=== PATIENT | female | born 1990 | race Native Hawaiian/Other Pacific Islander ===

== ENCOUNTER → 2017-01-24 | Outpatient (CLI) | payer OTHER ==
[~2017-01-24] MED LIST: OMEP20CA5 PO
== END ==
LOC: HPND 07:49
PROVIDERS: ATTEND Obstetrics & Gynecology
DX: O28.1 Abnormal biochemical finding on antenatal screening of mother (principal); Z3A.22 22 weeks gestation of pregnancy
CPT/HCPCS: 59000; 76811; 76817; 76825; 76827; 76946; 93325

== ENCOUNTER 2017-02-07 09:04 | Inpatient (IN) | payer OTHER ==
[2017-02-07] MEDS ORDERED: LACTATED RINGER'S 1000 ML INJ 1,000 ML IV SCH (12:09)
[2017-02-07 12:11] VITALS: BP 102/68; PULSE 58
[2017-02-07] MEDS ORDERED: BETAMETHASONE SOD PHOS/ACETATE SUSP 30 MG/5 ML VIAL IM SCH (12:15)
[2017-02-07] MEDS ORDERED: SODIUM CHLORIDE 0.9% FLUSH 10 ML FLUSH IV FLUSH SCH (12:15)
[2017-02-07] MEDS ORDERED: SODIUM CHLORIDE 0.9% FLUSH 10 ML FLUSH IV FLUSH PRN (12:15)
--- NOTE | 2017-02-07 12:32 | HHI.HP ---
HPI Chief Complaint abnormal testing with [facility] today 02/07/17; severe IUGR, intermittent reversed EDF, brain sparing, oligohydramnios DVP 2.75cm Date Seen: February 07, 2017 Time Seen: 12:15 Travel History International Travel<30 Days: No Contact w/Intl Traveler<30Days: No Known Affected Area: No History of Present Illness HPI 26 yo with EDC 05/30/17 by LMP c/w 13 wk sonogram, admitted today on recommendation from [facility] Dr. Aaron due to abnormal testing, severe IUGR, in male fetus with known history of abnormal lab & ultrasound findings; elevation in AFP on testing, increased risk open spina bifida 1:10. Amniocentesis performed by [facility] in January 2017 with FISH results normal karyotype 46 XY. Pt was scheduled for growth scan today due to h/o abnormal labs as well as h/o abnormal sonogram findings 01/24/17: AEDV, echogenic bowel, suspected VSD. Today EFW is 372g, which is <10%tile and shows no growth compared to scan from 1 month ago, at which time EFW was around 411g. Dopplers today are abnormal with brain sparing and intermittent reversed EDF as well as oligohydramnios with DVP 2.75cm. Pt denies any h/o PPROM. Pt and are of [place] origin, do not speak [place], lang interpreter was present during [facility] eval today. On further history of first with lang interpreter today, it sounds as if that may have been a "8 month" . possibly 32-34 wks , delivered by , 5#8oz, female. Pt and report no family history of genetic abnormalities. Deny exposures. Previous TORCH testing was negative last month for toxo/CMV/Parvo. Per [facility] recommendation today for admission to Antepartum, IV fluid hydration, continuous monitoring, betamethasone administration. If tracing reassuring would recommend transfer to Level 3 NICU due to severely abnormal testing and concern for need for delivery within next 48-72h if testing devolves. Repeat testing to be performed in 48 hours. Para: 1 : 2 Last Menstrual Period: Aug 23, 2016 Miscarriage: 0 : 0 History Past Medical History Narrative Medical denies Obstetric History Obstetric History no records available language barrier possible 8 month delivery via 10/18/12 female 5#8oz in [place] Past Surgical History Narrative Surgical 10/18/12 Family History Family History: Negative Social History Alcohol Use: No Tobacco Use: No Substance Abuse: No Allergies-Medications (Allergen,Severity, Reaction): Coded Allergies: No Known Allergies (Unverified , 02/07/17) Home Meds Active Scripts Omeprazole 20 mg (Prilosec 20 mg)20 Mg Capcr20 Mg PO DAILY #30 CAP Prov:Dru Sanchez MD 02/03/15 Review of Systems General / Constitutional: Weight Gain (10# from first visit), No: Fever, Chills, Other Eyes: No: Diploplia, Blurred Vision, Visual changes, Pain, Photophobia HENT: No: Headaches, Vertigo, Lightheadedness Cardiovascular: No: Irregular Rhythm, Chest Pain or Discomfort, Palpitations, Tachycardia, Syncope, Varicosities, Edema, Cyanosis Respiratory: No: Cough, Short of Breath, Other Gastrointestinal: No: Nausea, Vomiting, Diarrhea Genitourinary: No: Decreased Urinary Output, Oliguria Musculoskeletal: No: Limited ROM, Weakness, Cramping, Edema, Pain Skin: No Rash, No Itching, No Dryness, No Lumps, No Change in Pigmentation, No Change in Nails, No Alopecia, No Lesions Neurologic: No: Weakness, Dizziness, Syncope, Focal Abnormalities, Coordination Problem, Headache, Slurred Speech, Seizures Psychiatric: No: Depression, Suicidal Ideations, Homicidal Ideation Endocrine: No: Heat Intolerance, Cold Intolerance, Polydipsia, Polyuria, Other Physical Exam Narrative GENERAL: Well-nourished, well-developed patient. SKIN: Warm and dry. HEAD: Normocephalic and atraumatic. EYES: No scleral icterus. No injection or drainage. ENT: No nasal drainage noted. Mucous membranes pink. Airway patent. NECK: Supple, trachea midline. No JVD. CARDIOVASCULAR: Regular rate and rhythm without murmurs, gallops, or rubs. RESPIRATORY: Breath sounds equal bilaterally. No accessory muscle use. BREASTS: deferred. ABDOMEN/GI: Abdomen soft, non-tender, bowel sounds present, no rebound, no guarding Gravid to [24] weeks size Fundal Height: [21] GENITOURINARY: External Genitalia: deferred Presentation: [cephalic on sono today] Membranes: [intact] Uterine Contractions: [none] FHT's: 140s with no decels EXTREMITIES: No cyanosis or edema. BACK: Nontender without obvious deformity. No CVA tenderness. NEUROLOGICAL: Awake and alert. Motor and sensory grossly within normal limits. Five out of 5 muscle strength in all muscle groups. Normal speech. Data Data Vital Signs Reviewed: Yes Orders Us Ob Repeat/Fu(Growth) (02/07/17 ) Us Ob Umbilical Art Dopp (02/07/17 ) Admit To Inpatient (02/07/17 ) Diet Npo (02/07/17 Lunch) Vital Signs (Adult) [id number] AWAKE (02/07/17 12:09) Heart (02/07/17 12:09) Activity Oob Ad Lalitha (02/07/17 12:09) Complete Blood Count With Diff (02/07/17 12:09) Basic Metabolic Panel (Bmp) (02/07/17 12:09) Uric Acid (02/07/17 12:09) Urinalysis - C+S If Indicated (02/07/17 12:09) Lactated Ringer's 1000 Ml Inj (Lr 1000 M (02/07/17 12:09) Sodium Chloride 0.9% Flush (Ns Flush) (02/07/17 12:15) Sodium Chloride 0.9% Flush (Ns Flush) (02/07/17 12:15) Ob/Psych Drug Screen, Urine (02/07/17 12:09) Hold Clot (02/07/17 12:09) Betamethasone Inj (Celestone Soluspan In (02/07/17 12:15) Inpatient Certification (02/07/17 ) Specimen To Be Collected PRN (02/07/17 12:09) Assessment/Plan Problem List: (1) Intrauterine growth restriction (IUGR) affecting care of mother, second trimester, single gestation (2) Oligohydramnios in toribio in second trimester Assessment and Plan 26 yo with EDC 05/30/17, 24w0d today, admit for abnormal testing with MFM , severe IUGR, abnl dopplers, oligohydramnios 1) abnl testing: today severe IUGR noted, EFW 372g <10%tile, abnormal dopplers with brain sparing and intermittent reversed EDF; oligohydramnios with DVP 2.75cm; testing was ordered due to h/o abnl elevation in AFP with amniocentesis showing normal karyotype 46XY last month but other abnl u/s findings including AEDV, echogenic bowel, and suspected VSD first noted on exam. TORCH testing negative 01/2017; no h/o of PPROM per pt report. No h/o exposures or toxins. 2) language barrier: pt & from [place]; lang interpreter present during MFM eval; speaks limited [place] 2) status: guarded; tracing 140s at this time without decels; will plan IV hydration, first dose of BMZ, then call Level 3 facility for transfer due to prematurity, possible need for delivery due to abnl testing & status within next few days (our facility is Level 2) Discharge Planning not meeting criteria Bertha Burks MD February 07, 2017 12:32 not meeting criteria Bertha Burks MD February 07, 2017 12:32
[2017-02-07 13:00] VITALS: RESP 20; TEMP 97.8
[2017-02-07 13:35] LABS: AUTOMATED NEUTROPHIL # 5.1 TH/MM3 (1.8-7.7); BASOPHIL # 0.1 TH/MM3 (0-0.2); BASOPHIL % 0.8 % (0.0-2.0); EOSINOPHIL # 0.4 TH/MM3 (0-0.4); HEMATOCRIT 33.1 % (35.0-46.0); HEMO FLAGS DIFF FINAL; LYMPH % 27.5 % (9.0-44.0); LYMPHOCYTE # 2.3 TH/MM3 (1.0-4.8); MEAN CELL VOLUME 89.6 FL (80.0-100.0); MEAN CORPUSCULAR HEMOGLOBIN 30.8 PG (27.0-34.0); MEAN CORPUSCULAR HGB CONC 34.4 % (32.0-36.0); MONO % 6.7 % (0.0-8.0); PLATELET COUNT 209 TH/MM3 (150-450); RED CELL DISTRIBUTION WIDTH 14.6 % (11.6-17.2); WHITE BLOOD COUNT 8.5 TH/MM3 (4.0-11.0)
[2017-02-07 13:47] LABS: BACTERIA, URINE RARE /hpf; BLOOD, URINE NEG (NEG); COMMENT (UR) CULT NOT INDICATED; CULTURE IF INDICATED CULT NOT INDICATED; GLUCOSE,URINE NEG (NEG); KETONE, URINE NEG (NEG); NITRITE,URINE NEG (NEG); PH, URINE 5.5 (5.0-8.5); SQUAMOUS EPITHELIAL CELL URINE 1 /hpf (0-5); URINE COLOR LIGHT-YELLOW (YELLW/STRAW)
[2017-02-07 13:59] LABS: AMPHETAMINE, URINE NEG (NEG); BARBITURATES, URINE NEG (NEG); COCAINE, URINE NEG (NEG)
[2017-02-07 14:32] LABS: BICARBONATE 24.2 MEQ/L (21.0-32.0); POTASSIUM 3.9 MEQ/L (3.5-5.1); URIC ACID 3.8 MG/DL (2.6-6.0)
[2017-02-09 14:48] LABS: BATH SALTS (MDPV) UR NEG (NEG); ECSTASY (MDMA) UR NEG (NEG); GABAPENTIN UR NEG (NEG); HEROIN (6-ACETYLMORPHINE) UR NEG (NEG); HYDROMORPHONE U NEG (NEG); K2 SPICE UR NEG (NEG); OBMETHADONE UR NEG (NEG); OXYCODONE (PERCODAN) NEG (NEG); PHENCYCLIDINE URINE NEG (NEG)
== END 2017-02-07 18:32 | disposition short-term general hospital (02) | DRG 782 ==
LOC: HPND 09:04 → H2EA 11:47 → OBSVTOIN 12:15
PROVIDERS: ADMIT Obstetrics & Gynecology; ATTEND Obstetrics & Gynecology
DX: O36.5920 Maternal care for other known or suspected poor fetal growth, second trimester, not applicable or unspecified (principal); O41.02X0 Oligohydramnios, second trimester, not applicable or unspecified; O34.219 Maternal care for unspecified type scar from previous cesarean delivery; Z3A.24 24 weeks gestation of pregnancy
CPT/HCPCS: 76816; 76820; 76821; 80048; 80307; 81001; 84550; 85025; G0481; J0702; J7120

== ENCOUNTER 2018-01-06 19:02 | Emergency (ER) | payer OTHER ==
[~2018-01-06] VITALS: Ht 160 cm; Wt 72.0 kg
[2018-01-06 19:05] VITALS: BP 117/57; PULSE 81; RESP 16; TEMP 98.7; O2SAT 99
[2018-01-06] MEDS ORDERED: SODIUM CHLOR 0.9% 1000 ML INJ 1,000 ML IV ONE ×2 (19:47→21:15)
--- NOTE | 2018-01-06 20:01 | PD ---
HPI Chief Complaint: Related Problem Time Seen by Provider: 19:36 Travel History International Travel<30 days: No Contact w/Intl Traveler<30days: No Traveled to known affect area: No History of Present Illness HPI The patient is a 27 year old female who presents to the [facility] emergency department with a history of abdominal pain and vaginal bleeding that began last night. The patient reports initially that she is 16 weeks , however on further questioning she reports that her last menstrual cycle was October 26. Which would make her estimated date of delivery August 02, 2018 with current gestational age 10 weeks and 2 days. The patient denies having any PROMOTIONS SPECIALIST currently. She is followed by her family practice doctor. The patient reports that the vaginal bleeding began yesterday in the afternoon. The bleeding was initially light and has become heavier over time. She reports that this morning she awoke with pain. She reports that the pain became severe at 4 PM. She reports that the pain is a cramping sensation. On review of systems otherwise, she denies having any known recent fevers, cough, congestion , neck pain, chest pain, shortness of breath, vomiting, diarrhea, urinary symptoms, or neurologic symptoms. The patient is a with a history of a 25 week miscarriage in 2017. [facility] Past Medical History Narrative Medical The patient's past medical history is significant for having a prior history of intrauterine growth retardation with demise at 25 weeks and 2017. Immunizations Current: Yes Tetanus Vaccination: Unknown Influenza Vaccination: No ?: Past Surgical History Narrative Surgical The patient's past surgical history is significant for a 1. Social History Alcohol Use: No Tobacco Use: No Substance Use: No Allergies-Medications (Allergen,Severity, Reaction): Coded Allergies: No Known Allergies (Unverified Adverse Reaction, Unknown, 01/06/18) Reported Meds & Prescriptions Reported Meds & Active Scripts Active Doxycycline Hyclate 100 Mg Cap 100 Mg PO BID Hydrocodone-Acetaminophen 5-325 mg Tab 1 Tab PO Q6H PRN Physical Exam Narrative General: The patient is a well-developed well-nourished female, uncomfortable appearing on arrival, intermittently moaning and writhing around related to abdominal pain. Head and Neck exam: Head is normocephalic atraumatic. Eyes: EOMI, pupils are equal round and reactive to light. Nose: Midline septum with pink mucous membranes Mouth: Dentition unremarkable. Moist mucus membranes. Posterior oropharynx is not erythematous. No tonsillar hypertrophy. Uvula midline. Airway patent. Neck: No palpable lymphadenopathy. No nuchal rigidity. No thyromegaly. Cardiovascular: Regular rate and rhythm without murmurs, gallops, or rubs. No pulse deficit to the extremities. Lungs: Clear to auscultation bilaterally. No wheezes, rhonchi, or rales. Abdomen: Soft, with reported pain on palpation in the suprapubic area, no other pain on palpation of the other quadrants of the abdomen. No palpable fundus. No guarding, rebound, or rigidity. Normal bowel sounds are audible. No tenderness on palpation of McBurney's point Extremities: No clubbing, cyanosis, or edema. 2+ pulses in all 4 extremities. No calf tenderness on palpation. Back: No costovertebral angle tenderness to palpation. Neurologic Exam: Grossly nonfocal Skin Exam: No rash noted. Intact skin that is warm and dry. Gynecologic exam: The patient was placed in the dorsal lithotomy position. Her external genitalia were examined. She had no evidence of rash or lesions. She is noted to have blood present on the pad with blood that is soaked through the pad onto the bed. The speculum was placed into her vagina and large clots were noted in the vaginal vault. These were removed with large cotton swabs. Once the cervix was able to be visualized the patient's cervix was noted to be open. The patient was noted to have tissue and the cervical office. The patient was able to bear down and the tissue extruded from the cervical loss. This was removed with a ring forcep. It appeared to be a gestational sac that was quite small. This was placed in a basin and will be sent for products of conception. Reexamination of her cervix after this came out reveals that the patient has decreased vaginal bleeding. The patient's cervical office also appeared to be smaller. The patient will be observed further. Data Data Last Documented VS Vital Signs Date Time Temp Pulse Resp B/P (MAP) Pulse Ox O2 Delivery O2 Flow Rate FiO2 01/06/18 20:29 75 17 103/63 (76) 99 Room Air 01/06/18 19:05 98.7 Orders Orders Beta Hcg (Quant/Titer) (01/06/18 19:47) Complete Blood Count With Diff (01/06/18 19:47) Comprehensive Metabolic Panel (01/06/18 19:47) Gc And Chlamydia Pcr (01/06/18 19:47) Wet Prep Profile (01/06/18 19:47) Urinalysis - C+S If Indicated (01/06/18 19:47) Iv Access Insert/Monitor (01/06/18 19:47) Ecg Monitoring (01/06/18 19:47) Sodium Chlor 0.9% 1000 Ml Inj (Ns 1000 M (01/06/18 19:47) Ed Urine Pregnancytest Poc (01/06/18 19:47) Morphine Inj (Morphine Inj) (01/06/18 20:15) Ed Poc Ultrasound (01/06/18 ) Morphine Inj (Morphine Inj) (01/06/18 20:30) Ondansetron Inj (Zofran Inj) (01/06/18 20:30) Type And Screen (01/06/18 20:19) Red Blood Cells (Rbc) (01/06/18 20:19) Us Pelvis (Ques Pr/Ect)W Trans (01/06/18 21:05) Sodium Chlor 0.9% 1000 Ml Inj (Ns 1000 M (01/06/18 21:15) Labs Laboratory Tests Test 01/06/18 20:25 01/06/18 22:00 White Blood Count 7.0 TH/MM3 Red Blood Count 4.18 MIL/MM3 Hemoglobin 12.0 GM/DL Hematocrit 35.8 % Mean Corpuscular Volume 85.6 FL Mean Corpuscular Hemoglobin 28.8 PG Mean Corpuscular Hemoglobin Concent 33.7 % Red Cell Distribution Width 12.9 % Platelet Count 280 TH/MM3 Mean Platelet Volume 9.8 FL Neutrophils (%) (Auto) 56.8 % Lymphocytes (%) (Auto) 31.7 % Monocytes (%) (Auto) 7.9 % Eosinophils (%) (Auto) 2.8 % Basophils (%) (Auto) 0.8 % Neutrophils # (Auto) 4.0 TH/MM3 Lymphocytes # (Auto) 2.2 TH/MM3 Monocytes # (Auto) 0.6 TH/MM3 Eosinophils # (Auto) 0.2 TH/MM3 Basophils # (Auto) 0.1 TH/MM3 CBC Comment DIFF FINAL Differential Comment Blood Urea Nitrogen 8 MG/DL Creatinine 0.67 MG/DL Random Glucose 90 MG/DL Total Protein 9.0 GM/DL Albumin 4.1 GM/DL Calcium Level 9.2 MG/DL Alkaline Phosphatase 75 U/L Aspartate Amino Transf (AST/SGOT) 24 U/L Alanine Aminotransferase (ALT/SGPT) 30 U/L Total Bilirubin 0.4 MG/DL Sodium Level 138 MEQ/L Potassium Level 3.5 MEQ/L Chloride Level 106 MEQ/L Carbon Dioxide Level 23.6 MEQ/L Anion Gap 8 MEQ/L Estimat Glomerular Filtration Rate 107 ML/MIN Human Chorionic Gonadotropin, Quant 16157 MIU/ML [facility] Medical Decision Making Medical Screen Exam Complete: Yes Emergency Medical Condition: Yes Medical Record Reviewed: Yes Differential Diagnosis Ectopic , versus miscarriage, versus hemorrhagic shock Narrative Course During the course of the patient's emergency department visit, the patient's history, examination, and differential diagnosis were reviewed with the patient. The patient was placed on a lead caster helper with oximetry and frequent blood pressure monitoring. The patient had IV access obtained and blood work sent for analysis. The patient was initially provided normal saline 1 L IV fluid bolus, morphine 4 mg IV for pain, Zofran 4 mg IV for nausea The patient's laboratory studies were reviewed and remarkable for a white count of 7, hemoglobin 12, platelets 280 with a normal differential. CMP is remarkable for total protein of 9.0, quantitative beta-hCG is 11,585. Blood type is O+ Radiology studies were reviewed and remarkable for an ultrasound done by the radiology department transabdominally and transvaginally that reveals no definite evidence for normal intrauterine gestation at this time. The endometrium is thickened, heterogeneous and increased blood flow is noted, right ovarian hypoechoic mass seen without blood flow. Continued sonographic and serial hCGs are recommended for follow-up by Dr. Her. I did call and speak to him at 2215 regarding the blood flow to bilateral ovaries. He reports that the blood flow to bilateral ovaries is apparently normal. I spoke to the OB ED hospitalist on-call, Dr. Purcell regarding this patient's case. As the patient's bleeding has decreased he agreed that the patient could be discharged home to follow-up with the fork lift mechanic on-call. The patient per his recommendations will be continued on pain medication and an antibiotic due to her cervical eyes being open. The patient is resting comfortably and feels better, is alert and in no distress. The patient's results and examination findings were discussed with the patient. The repeat examination is unremarkable and benign. The history, exam, diagnostic testing, and current condition do not suggest any significant pathology to warrant further testing, continued ED treatment, admission, or surgical evaluation at this point. The vital signs have been stable. The patient does not have uncontrollable pain, intractable vomiting, or other significant symptoms. The patient's condition is stable and appropriate for discharge. The patient will pursue further outpatient evaluation with a primary care physician or other designated or consulting physician as indicated in the discharge instructions. The patient expressed understanding and was agreeable with this plan. Procedures Procedure Narrative Emergency Department Pelvic ultrasound was performed with patient consent. The curvilinear probe was used in the transverse and sagittal views within the suprapubic region revealing no intrauterine that was able to be identified. A follow-up transvaginal ultrasound with the radiology department has been ordered. Physician Communication Physician Communication The patient's case including history, pertinent physical examination findings, and laboratory studies were discussed with Dr. Purcell, the OB ED hospitalist on- call at 22:04. As the bleeding has slowed down, and he agreed that the patient could be discharged home. He recommended that the patient received pain medication for cramping. Due to a concern that the patient's cervical office was opened for several hours today, he did recommend antibiotic. Per his recommendation the patient will be given doxycycline 100 mg p.o. twice daily. He agreed with the plan that the patient be sent for follow-up with the fork lift mechanic on-call, Dr. Hemphill. Diagnosis Primary Impression: Complete miscarriage Additional Impression: Pelvic mass in female Referrals: Macario Hemphill MD call for appointment Patient Instructions: General Instructions, Miscarriage (ED) Med/Other Pt SpecificInfo: Prescription(s) given Scripts Doxycycline Hyclate (Doxycycline Hyclate) 100 Mg Cap 100 MG PO BID for Infection, #20 CAP 0 Refills Prov: Kathy Larson MD 01/06/18 Hydrocodone-Acetaminophen (Hydrocodone-Acetaminophen) 5-325 mg Tab 1 TAB PO Q6H Y for PAIN, #12 TAB 0 Refills Prov: Kathy Larson MD 01/06/18 Disposition: 01 DISCHARGE HOME Condition: Stable Kathy Larson MD Jan 06, 2018 20:01
[2018-01-06] MEDS ORDERED: MORPHINE SULFATE 4 MG/ML INJ IV PUSH ONE (20:15)
[2018-01-06 20:29] VITALS: BP 103/63; PULSE 75; RESP 17; O2SAT 99
[2018-01-06] MEDS ORDERED: ONDANSETRON HCL 4 MG/2 ML VIAL IV PUSH ONE (20:30)
[2018-01-06] MEDS ORDERED: MORPHINE SULFATE 2 MG/ML INJ IV PUSH ONE (20:30)
[2018-01-06 20:37] LABS: BASOPHIL # 0.1 TH/MM3 (0-0.2); BASOPHIL % 0.8 % (0.0-2.0); EOSINOPHIL # 0.2 TH/MM3 (0-0.4); EOSINOPHIL % 2.8 % (0.0-4.0); HEMATOCRIT 35.8 % (35.0-46.0); LYMPH % 31.7 % (9.0-44.0); LYMPHOCYTE # 2.2 TH/MM3 (1.0-4.8); MEAN CELL VOLUME 85.6 FL (80.0-100.0); MEAN CORPUSCULAR HEMOGLOBIN 28.8 PG (27.0-34.0); MEAN CORPUSCULAR HGB CONC 33.7 % (32.0-36.0); MEAN PLATELET VOLUME 9.8 FL (7.0-11.0); MONO % 7.9 % (0.0-8.0); MONOCYTE # 0.6 TH/MM3 (0-0.9); NEUT % 56.8 % (16.0-70.0); PLATELET COUNT 280 TH/MM3 (150-450); RED BLOOD COUNT 4.18 MIL/MM3 (4.00-5.30); RED CELL DISTRIBUTION WIDTH 12.9 % (11.6-17.2)
[2018-01-06 20:47] LABS: ALBUMIN 4.1 GM/DL (3.4-5.0); BICARBONATE 23.6 MEQ/L (21.0-32.0); BLOOD UREA NITROGEN 8 MG/DL (7-18); CALCIUM 9.2 MG/DL (8.5-10.1); CHLORIDE 106 MEQ/L (98-107); CREATININE 0.67 MG/DL (0.50-1.00); GLOMERULAR FILTRATION RATE 107 ML/MIN (>89); GLUCOSE,RANDOM 90 MG/DL (74-106); SODIUM (NA) 138 MEQ/L (136-145)
[2018-01-06 20:48] LABS: ALT (GPT) 30 U/L (10-53); AST (GOT) 24 U/L (15-37)
[2018-01-06 21:04] LABS: ALKALINE PHOSPHATASE 75 U/L (45-117); TOTAL BILIRUBIN ADULT 0.4 MG/DL (0.2-1.0)
--- NOTE | 2018-01-06 22:08 | RADRPT ---
EXAM DATE/TIME: 01/06/2018 21:20 [place] COMPARISON: No previous studies available for comparison. INDICATIONS : Pelvic pain. LAB(S): Beta-hC MEDICAL HISTORY : Pelvic pain. SURGICAL HISTORY : section. ENCOUNTER: Initial ACUITY: 4-6 days PAIN SCORE: 4/10 LOCATION: Bilateral pelvis MEASUREMENTS: UTERUS: 7.7 x 5.5 x 4.5 cm ENDOMETRIAL STRIPE: 17 mm RIGHT OVARY: 3.6 x 2.0 x 2.8 cm LEFT OVARY: 2.1 x 1.7 x 1.7 cm FREE FLUID: No FINDINGS: UTERUS: The endometrial stripe is thickened and heterogeneous up to 17 mm in width. There is blood flow ident ified on color imaging. A gestational sac or pole not identified. RIGHT OVARY: A 1.9 x 1.6 x 2.1 cm hypoechoic mass without internal blood flow is present at the level of the right ovary. Several tiny follicular cysts are seen. LEFT OVARY: Ovary contains no mass or significant cystic lesion. MISCELLANEOUS: No free fluid. CONCLUSION: No definite evidence for normal intrauterine gestation at this time. The endometrium is thickened, he terogeneous and increased blood flow was noted. Right ovarian hypoechoic mass seen without blood flow . Continued sonographic and hCG followup recommended. Panchito Her MD on January 06, 2018 at 22:04 Board Certified Radiologist. This report was verified electronically.
[2018-01-06] MEDS ORDERED: HYDR-3516 PO (22:10)
[2018-01-06] MEDS ORDERED: DOXY100C PO (22:10)
[2018-01-06 22:18] LABS: BILIRUBIN, URINE NEG (NEG); BLOOD, URINE LARGE (NEG); GLUCOSE,URINE NEG (NEG); KETONE, URINE NEG (NEG); NITRITE,URINE NEG (NEG); PH, URINE 7.5 (5.0-8.5); URINE COLOR YELLOW (YELLW/STRAW); URINE LEUKOCYTE ESTERASE NEG (NEG)
== END 2018-01-06 23:07 | disposition home or self-care (01) ==
LOC: NEPC 19:02
DX: O03.9 Complete or unspecified spontaneous abortion without complication (principal)
CPT/HCPCS: 76700; 76817; 80053; 81001; 84702; 84703; 85025; 86850; 86900; 86901; 86920; 87491; 87591; 88305; 96361; 96374; 96375; 99285; J2270; J2405; J7030